=== PATIENT | male | born 1965 | race Caucasian/White ===

== ENCOUNTER 2016-08-13 14:46 | Inpatient (IN) | payer OTHER ==
[~2016-08-13] VITALS: Ht 182.9 cm; Wt 104.7 kg
[~2016-08-13 14:46] MED LIST: AMBIEN5 MG PO; Ambien PO; Atarax PO; BUSPAR15 MG PO; CITALOPRAM HBR20 MG PO; FLEXERIL10 MG PO; HYDROXYZINE PAM25 MG PO; LEXAPRO20 MG PO; MOTRIN IB200 MG PO; MOTRIN800 MG PO; PRAZOSIN HCL5 MG PO; ROBAXIN750 MG PO; SEROQUEL400 MG PO; VICODIN ES 71 TABLET PO; ZOLOFT50 MG PO
[2016-08-13 16:06] LABS: HEMATOCRIT 46.8 % (38.0-50.0); MCH 31.6 PG (29.0-34.0); MCHC 34.4 G/DL (30.0-36.0); MCV 91.9 FL (86-99); MEAN PLAT.VOLUME 9.2 uM^3 (9.0-12.4); PLATELET COUNT 228 K/uL (156-360); RBC DIS.WIDTH-CV 13.3 % (11.8-14.6); RBC DIS.WIDTH-SD 45.7 % (39-53); RED BLOOD COUNT 5.09 M/uL (4.00-5.50); WHITE BLOOD COUNT 8.5 K/uL (4.1-10.2)
[2016-08-13 16:13] LABS: CHLORIDE 107 mEq/L (99-109); POTASSIUM 3.9 mEq/L (3.7-5.4); SODIUM 141 mEq/L (136-147)
[2016-08-13 16:15] LABS: GLUCOSE 85 mg/dL (70-99)
[2016-08-13 16:16] LABS: ANION GAP 14 MEQ/L (2-14)
[2016-08-13 16:17] LABS: TOTAL BILIRUBIN 0.7 mg/dL (0.0-1.0)
[2016-08-13 16:18] LABS: SERUM ETHYL ALCOHOL 233 mg/dL
[2016-08-13 16:19] LABS: ALKALINE PHOSPHATASE 58 IU/L (3-129); GFR ESTIMATE (CALCULATED) > 59 mL/min/
[2016-08-13 16:20] LABS: UREA NITROGEN (BUN) 13 mg/dL (9-23)
[2016-08-13 21:48] LABS: ADD MIUA? YES; BILIRUBIN NEGATIVE; BLOOD SMALL; COLOR YELLOW ((YELLOW)); GLUCOSE (STRIP) 50; KETONES 20; LEUKOCYTES NEGATIVE; NITRITE NEGATIVE; PROTEIN (STRIP) 30; SPECIFIC GRAVITY 1.027 (1.000-1.030); UROBILINOGEN 0.2 MG/DL (0.2-1.0)
[2016-08-13 21:55] LABS: BACTERIA 1+ /HPF; EPITHELIAL CELLS RARE /HPF; HYALINE CASTS 0-5 /LPF; MUCUS 2+ /LPF; RED BLOOD CELLS 0-5 /HPF (0-5); WHITE BLOOD CELLS 0-5 /HPF (0-5)
[2016-08-13 22:02] LABS: AMPHETAMINE NEGATIVE (500 ng/mL); BARBITURATES NEGATIVE (200 ng/mL); BENZODIAZEPINES NEGATIVE (150 ng/mL); COCAINE NEGATIVE (150 ng/mL); INTERNAL CONTROLS VALID? YES; METHADONE NEGATIVE (200 ng/mL); METHAMPHETAMINE NEGATIVE (500 ng/mL); OPIATES (MORPHINE) NEGATIVE (100 ng/mL); OXYCODONE NEGATIVE (100 ng/mL); PHENCYCLIDINE NEGATIVE (25 ng/mL); PROPOXYPHENE NEGATIVE (300 ng/mL); THC CANNABINOIDS NEGATIVE (50 ng/mL); TRICYCLIC ANTIDEPRESSANTS NEGATIVE (300 ng/mL)
[2016-08-13] MEDS ORDERED: PRAZOSIN HCL2 MG PO (23:05)
[2016-08-13] MEDS ORDERED: SEROQUEL400 MG PO (23:06)
[2016-08-13] MEDS ORDERED: CELEXA20 MG PO (23:06)
[2016-08-14 08:03] VITALS: BP 125/71
[2016-08-14 15:19] VITALS: BP 139/75
[2016-08-15 07:50] VITALS: BP 123/80
[2016-08-15 15:34] VITALS: BP 142/87
[2016-08-16 07:56] VITALS: BP 120/71
[2016-08-16 15:43] VITALS: BP 124/79
[2016-08-17 07:27] VITALS: BP 112/59
[2016-08-17 15:41] VITALS: BP 128/80
[2016-08-18 15:36] VITALS: BP 129/80
[2016-08-19 07:49] VITALS: BP 102/68
[2016-08-19] MEDS ORDERED: PRAZOSIN HCL2 MG PO (11:12)
[2016-08-19] MEDS ORDERED: CITALOPRAM HBR20 MG PO (11:12)
[2016-08-19] MEDS ORDERED: DIVALPROEX SOD500 M1 PO (11:12)
[2016-08-19] MEDS ORDERED: QUETIAPINE FUM100 MG PO (11:12)
[2016-08-19] MEDS ORDERED: SEROQUEL400 MG PO (11:12)
== END 2016-08-19 12:29 | disposition other institution (70) | DRG 885 ==
LOC: EME 14:46 → 1WEST 22:55 → EDOF 22:55 → 1WEST 08-14 01:18
PROVIDERS: Emergency Medicine
DX: F31.9 Bipolar disorder, unspecified (principal); R45.851 Suicidal ideations; R45.850 Homicidal ideations; F10.229 Alcohol dependence with intoxication, unspecified; F17.200 Nicotine dependence, unspecified, uncomplicated; Z59.0 Homelessness; Y90.7 Blood alcohol level of 200-239 mg/100 ml
CPT/HCPCS: 80053; 80164; 81003; 85027; 90837; 97150 GO; 97165 GO; 99281; 99285; G0480; J1630; J2060